=== PATIENT | female | born 1965 | race Caucasian/White ===

== ENCOUNTER → 2018-09-23 | Day surgery (SDC) | payer OTHER ==
[2018-09-20 11:52] VITALS: Ht 162.6 cm; Wt 60.0 kg
[2018-09-23] VITALS (13 sets, daily range): BP systolic 96–120; BP diastolic 53–66; PULSE 54–100; RESP 16–24
[~2018-09-23] VITALS: Ht 162.6 cm; Wt 60.0 kg
[~2018-09-23] MED LIST: BUPIVACAINE 0.25% (MPF) 30 ML INJ ONE; CEFAZOLIN 1 GM INJ ONE; CEFAZOLIN 2 GM/50 ML (PMX) 50 ML IVPB SCH; EPHEDrine 50 MG INJ ONE; GLYCOPYRROLATE 0.4 MG INJ ONE; HYDROCODONE/APAP (5/325) TAB PO ONE; HYDROmorphONE 1 MG/5 ML IV SYRINGE IV ONE; HYDROmorphONE 1 MG/5 ML IV SYRINGE IV PRN; KETOROLAC 30 MG INJ ONE; MEPERIDINE 25 MG INJ IV PRN; METOCLOPRAMIDE 10 MG INJ ONE; MIDAZOLAM 1 MG/ML 2 ML INJ ONE; NEOSTIGMINE 10 MG INJ ONE; ONDANSETRON 4 MG INJ IV PRN; ONDANSETRON 4 MG INJ ONE; OXYCODONE/ACETAMINOPHEN (5/325) TAB PO PRN; PROPOFOL 200 MG INJ ONE; ROCURONIUM 50 MG INJ ONE; ROPIVACAINE 0.5 % 30 ML VIAL ONE; SOD CHLORIDE 0.9% 1,000 ML IV ONE
--- NOTE | 2018-09-23 07:25 | PREAC ---
Date/Time of Note Date/Time of Note DATE: 09/23/18 TIME: 07:24 Anesthesia Eval and Record Evaluation Time Pre-Procedure Interview DATE: 09/23/18 TIME: 07:24 Age 53 Sex female NPO: 8 hrs Preoperative diagnosis cholelithiaasis Planned procedure lap catherine Past Medical History Past Medical History: None Surgery & Anesthesia Issues No known issue Meds Anticoagulation: No Beta Loree within 24 hr: No Reason Beta Loree not given: Pt. not on B-Loree Current Medications Cefazolin Sodium/ Dextrose 50 ml @ 100 mls/hr PRE-OP IVPB ; Start 09/23/18 at 06:00; Stop 09/23/18 at 15:00 Sodium Chloride 1,000 ml @ 75 mls/hr [id number] ONCE IV ; Start 09/23/18 at 06:00; Stop 09/23/18 at 19:19 Meds reviewed: Yes Allergies Coded Allergies: No Known Allergy (Unverified , 09/20/18) Allergies Reviewed: Yes Labs/Studies Labs Reviewed: Reviewed by anesthesiologist Result Diagram: 09/23/18 0656 Laboratory Tests 09/23/18 06:56 test: Negative Studies: ECG (sr), CXR (nl) Pre-procedure Exam Airway: Adequate mouth opening Mallampati: Mallampati I Teeth: Normal Lung: Normal Heart: Normal ASA Physical Status ASA physical status: 1 Emergency: None Planned Anesthetic General/MAC: ETT Nerve block: TAP (bilateral) Planned Pain Management Single shot nerve block, Parenteral pain med Pre-operative Attestations Prior to commencing anesthesia and surgery, the patient was re-evaluated, there was verification of: *The patient's identity *The results of appropriate recent lab work and preoperative vital signs *The above evaluation not changing prior to induction *Anesthetic plan, risk benefits, alternative and complications discussed with patient/family; questions answered; patient/family understands, accepts and wishes to proceed. NAYAN LEIGH MD Sep 23, 2018 07:25
--- NOTE | 2018-09-23 08:25 | OPR ---
Date/Time of Note Date/Time of Note DATE: 09/23/18 TIME: 08:23 Operative Report Procedure Date: Sep 23, 2018 Preoperative Diagnosis symptomatic gallstones Postoperative Diagnosis same Operation/Procedure Performed laparoscopic cholecystectomy Surgeon see signature line Brown Sourer none Anesthesia Type: general Estimated Blood Loss: 0 - 10 ml's Transfusion none Specimen gallbladder Grafts/Implants none Complications none Pt Condition Post Procedure: stable Indications This is a 53-year-old female with symptomatic gallstones. She requests surgical excision of her gallbladder. Risks alternatives benefits and percent were discussed the patient. Patient expressed understanding and consents to the operation. Procedure Description Patient taken to the OR and prepped and draped in usual sterile fashion. Surgical time was performed. IV antibiotics were given. Infraumbilical transverse incision was made with a 15 blade. Dissection with cautery was carried onto the fascia. The fascia was grasped with Hungerford's and divided with curved Spangler scissors. 0 Vicryl U stitches placed into the fascia. Sanchez trocar was introduced. Pneumoperitoneum is established. Midepigastric 12 mm optical trochars placed under direct position. Right upper quadrant upper flank 5 mm optical trochars were placed under direct position. Upon initial inspection there are some adhesions of the gallbladder which are taken down bluntly. The gallbladder is grasped the fundus and retracted in a lateral cephalad direction. [place] graspers were used to dissect out the cystic duct and cystic artery. The critical view was established. The cystic duct is divided with 3 clips proximally clipped distal and the division was performed laparoscopic scissors. Cystic artery was divided with 3 clips proximal 1 clip distal and the division was performed laparoscopic scissors. The gallbladder is taken off the gallbladder bed with hook cautery. Good hemostasis established in the gallbladder bed. The gallbladder is retrieved using Endo Catch bag. Minimal suction irrigation is used. Ports removed under direct visualization. Infraumbilical port site 0 Vicryl U stitch that was placed previously was tied down. Skin port sites are closed with skin laura. A tap block was provided by the anesthesiologist the beginning of the case. Dry dressings were applied. Leola BORREGO Sep 23, 2018 08:25
--- NOTE | 2018-09-23 09:11 | PAC ---
Date/Time of Note Date/Time of Note DATE: 09/23/18 TIME: 09:10 Post-Anesthesia Notes Post-Anesthesia Note Last documented vital signs Vital Signs Date Temp Pulse Resp B/P (MAP) Pulse Ox O2 O2 Flow FiO2 Time Delivery Rate 09/23/18 98.7 60 20 99/54 (69) 99 Room Air 09:07 09/23/18 98.7 08:32 Activity: WNL Respiratory function: WNL Cardiovascular function: WNL Mental status: Baseline Pain reasonably controlled: Yes Hydration appropriate: Yes Nausea/Vomiting absent: No NAYAN LEIGH MD Sep 23, 2018 09:11
--- NOTE | 2018-09-23 14:32 | RADRPT ---
Vent Rate: 60 bpm RR Interval: 0 msec OK Interval: 138 msec QRS Duration: 80 msec QT Interval: 418 msec QTC Interval: 418 msec P-R-T [place]: 45 - 69 - 70 degrees Normal sinus rhythm Normal ECG Electronically Signed By: Arben Rajan
== END | disposition home or self-care (01) ==
LOC: SDS 06:10
PROVIDERS: ATTEND Surgery
DX: K80.10 Calculus of gallbladder with chronic cholecystitis without obstruction (principal)
CPT/HCPCS: 47562; 71045; 80053; 85025; 85610; 85730; 88304; 93005; J0690; J1170; J1885; J2250; J2405; J2710; J2765; J2795; Z7512; Z7610